=== PATIENT | male | born 1950 | race American Indian/Alaskan Native ===

== ENCOUNTER 2018-11-19 15:21 | Emergency (ER) | payer MEDICARE, OTHER ==
[2018-11-19 15:34] VITALS: RESP 18
--- NOTE | 2018-11-19 16:38 | C.PDOC ---
History Of Present Illness 68 year old male presents to the emergency department with complaints of cough for a week, with associated abdominal wall pain from coughing. Patient states that he is on Z-pack as prescribed by his PMD, with his last dose being tomorrow but reports no improvement. Patient reports a history of smoking, but denies history of asthma or fever. Time Seen by Provider: 11/19/18 16:02 Chief Complaint (Nursing): Cough, Cold, Congestion History Per: Patient History/Exam Limitations: no limitations Onset/Duration Of Symptoms: Other (one week) Current Symptoms Are (Timing): Still Present Associated Symptoms: Cough, Other (abdominal wall pain). denies: Fever Past Medical History Reviewed: Historical Data, Nursing Documentation, Vital Signs Vital Signs: Last Vital Signs Temp 97.8 F 11/19/18 15:31 Pulse 86 11/19/18 15:31 Resp 18 11/19/18 15:31 BP 121/74 11/19/18 15:31 Pulse Ox 97 11/19/18 15:31 - Medical History PMH: No Chronic Diseases Denies: Asthma Family History: States: Unknown Family Hx - Social History Hx Tobacco Use: Yes Hx Alcohol Use: Yes Hx Substance Use: Yes (methadone) Review Of Systems Except As Marked, All Systems Reviewed And Found Negative. Constitutional: Negative for: Fever, Chills Respiratory: Positive for: Cough. Negative for: Shortness of Breath Gastrointestinal: Positive for: Abdominal Pain (wall). Negative for: Nausea, Vomiting, Diarrhea Physical Exam - Physical Exam Appears: Non-toxic, No Acute Distress Skin: Normal Color, Warm, Dry Head: Atraumatic, Normacephalic Eye(s): bilateral: Normal Inspection, PERRL, EOMI Nose: Normal Oral Mucosa: Moist Throat: Normal, No Erythema, No Exudate Neck: Normal, Supple Chest: Symmetrical, No Tenderness Cardiovascular: Rhythm Regular, No Murmur Respiratory: Normal Breath Sounds, No Rales, No Rhonchi, No Wheezing Gastrointestinal/Abdominal: Soft, No Tenderness, No Guarding, No Rebound Extremity: Normal ROM Neurological/Psych: Oriented x3, Normal Speech, Normal Cognition ED Course And Treatment O2 Sat by Pulse Oximetry: 97 (RA) Progress Note: Plan: CXR. Motrin 600mg PO. Tessalon Perles 200mg PO. Prednisone 60mg PO Disposition Counseled Patient/Family Regarding: Studies Performed, Diagnosis, Need For Followup, Rx Given, Smoking Cessation - Disposition Referrals: YOUR,PMD [Other] Disposition: HOME/ ROUTINE Disposition Time: 17:09 Condition: IMPROVED Prescriptions: Benzonatate [Tessalon Perles] 200 mg PO TID PRN #15 sgl PRN Reason: Cough Ibuprofen [Motrin] 600 mg PO Q6 #30 tab predniSONE [Prednisone] 60 mg PO DAILY #12 tab Instructions: Cough, Adult (DC) Forms: [place] (Macedonian) - Clinical Impression Clinical Impression: Abdominal wall pain, Cough - Scribe Statement The provider has reviewed the documentation as recorded by the Scribe (Stefano Thibodeaux) Provider Attestation: All medical record entries made by the Scribe were at my direction and personally dictated by me. I have reviewed the chart and agree that the record accurately reflects my personal performance of the history, physical exam, medical decision making, and the department course for this patient. I have also personally directed, reviewed, and agree with the discharge instructions and disposition.
--- NOTE | 2018-11-19 17:10 | RAD ---
HISTORY: COUGH COMPARISON: None available. TECHNIQUE: Chest PA and lateral FINDINGS: LUNGS: Biapical pleural thickening. [id number]-[id number]-right basilar atelectasis. Emphysematous changes. Please note that chest x-ray has limited sensitivity for the detection of pulmonary masses. PLEURA: No significant pleural effusion identified. No definite pneumothorax . CARDIOVASCULAR: Heart size appears within normal limits. Dense atherosclerotic calcifications of the aortic knob. OSSEOUS STRUCTURES: Degenerative changes. VISUALIZED UPPER ABDOMEN: Unremarkable. OTHER FINDINGS: None. IMPRESSION: Zlyd-[id number]-[id number]-right basilar atelectasis. Biapical pleural thickening. Emphysematous changes.
[2018-11-19 17:23] VITALS: BP 105/70; PULSE 79; TEMP 98.9
[2018-11-20 19:23] VITALS: O2SAT 97
== END 2018-11-19 17:23 | disposition home or self-care (01) ==
LOC: C.ER 15:21
DX: R05 Cough (principal); R10.9 Unspecified abdominal pain